=== PATIENT | male | born 1965 | race Caucasian/White ===

== ENCOUNTER 2016-11-14 19:38 | Inpatient (IN) | payer OTHER ==
--- NOTE | ~2016-11-14 | CT71 ---
[facility] A Service of [facility] & [facility] RADIOLOGY TEXT RESULTS PATIENT: SALIMA RIOS II LOCATION: CEDOF 94079-51 : 64 UNIT #: [id number] AGE: [address]: Ines García MD SEX: M ORDER DR: [id number] [facility] [address]. [place], [place] [address] [id number] I MR#: [id number] Acc #: [id number] NAME: SALIMA RIOS : 1965 SEX: M STUDY DATE/TIME: 11/14/2016 20:21 UNIT: CEDOF ROOM: [id number] STUDY DESCRIPTION: CT Head Wo Contrast Attending Physician: Ines García M.D. Ordering Physician: Ed Doctor [id number] [facility] Primary Care Physician: [facility] [place] MEDICAL IMAGING REPORT This report is preliminary unless electronic signature is present EXAM Head CT without. HISTORY Near syncopal episode today, hypertension, nausea, vomiting, exhaustion, history of stroke in 2011 x4. COMMENT Routine noncontrast head CT is reviewed. COMPARISON There is previous study from 10/22/2011. TECHNIQUE This CT exam was performed with one or more of the following radiation dose reduction techniques: automatic exposure control, adjustment of mA and/or kV according to patient size, and iterative reconstruction. FINDINGS No displaced calvarial fracture. Visualized mastoid air cells and paranasal sinuses are clear. Prominent atherosclerotic vascular calcifications at the base of the brain. There is no evidence for extraaxial fluid collection. No acute intracranial hemorrhage is appreciated. Somewhat disproportionate volume loss in the posterior fossa is most commonly seen secondary to long-term alcohol or antiseizure medication usage. There is chronic-appearing lacunar insult in the right superior cerebellar hemisphere and in the left wayne-kerrie. These are new/more apparent when comparison is made to the prior study. There is no acute cortical infarct currently appreciated. There is no intracranial mass effect. Subtle area of nonspecific low attenuation at the posteromedial left parietal lobe could be some beam-hardening artifact. Can't exclude an area of subacute ischemia or chronic ischemia. This is [facility] A Service of [facility] & [facility] RADIOLOGY TEXT RESULTS PATIENT: SALIMA RIOS II [facility] [address] : 64 UNIT #: [id number] AGE: [address]: Ines García MD SEX: M ORDER DR: best pursued with a followup MRI if the patient is candidate. IMPRESSION 1. No acute intracranial hemorrhage or extraaxial fluid collection. 2. Chronic lacunar insults in the kerrie and right cerebellar hemisphere progressed or more apparent when comparison is made of 10/22/2011. 3. No definite acute cortical infarct. There is some subtle low attenuation seen at the medial left parietal cortex posteriorly which could be some beam-hardening artifact. It is, however, best further characterized with an MRI if the patient is candidate. If there is clinical concern for acute CVA, follow-up imaging is recommended preferably with an MRI. 4. Atherosclerotic vascular calcifications at the base of the brain. STAT * RESULT Dictated by... Radha Howard M.D. THIS IS AN ELECTRONICALLY VERIFIED REPORT Radha Howard M.D. at 11/15/2016 1:42 PM Meet TD: 11/14/2016 20:42 JOB #: [id number] MEDICAL IMAGING REPORT Page 1 of 1 COPY
--- NOTE | ~2016-11-14 | CO ---
Unit #: [id number] #: [id number] Patient: SALIMA RIOS II [id number] [address] [place], [place] [address] [id number] I MR#: [id number] NAME: SALIMA RIOS ROOM: 340 Age: 51 Sex: M Admission Date: 11/15/2016 : 1965 Attending Physician: Ines García M.D. Primary Care Physician: [facility]. CONSULTATION REPORT CHIEF COMPLAINT Dizziness. HISTORY OF PRESENT ILLNESS Mr. Rios is a 51-year-old gentleman with history of multiple strokes in the past, hypertension, hyperlipidemia, obesity, chronic renal insufficiency, congestive heart failure, who was admitted for acute onset of dizziness. The symptoms started yesterday. Today, he reports he is not as dizzy as before, but still gets dizzy when he moves. Yesterday, he had vomited as well, but today denies any nausea. REVIEW OF SYSTEMS GENERAL: Positive for overall decline. SKIN: Negative. HEENT: Negative. PULMONARY: Negative. CARDIOVASCULAR: Positive for dyspnea. GI: Negative. : Negative. MUSCULOSKELETAL: Negative. NEUROLOGIC: Positive for dizziness. PSYCHIATRIC: Negative. PAST MEDICAL HISTORY As above. SOCIAL HISTORY Positive for 1 pack per day of tobacco daily. Denies alcohol or illicit drugs. FAMILY HISTORY Positive for brother having strokes. PHYSICAL EXAMINATION GENERAL: He is of obese appearance. HEART: Sounds are regular. NECK: There are no carotid bruits. LUNGS: Simms are clear. EXTREMITIES: There is mild peripheral edema. VITAL SIGNS: Blood pressure 154/94, pulse 54, respirations 16, temperature 98.2. NEUROLOGIC: He is alert, oriented x3 with intact language, fluency, and comprehension. Fund of knowledge is average. Memory and attention span are normal. Visual simms are full. There is no papilledema. Unit #: [id number] #: [id number] Patient: SALIMA RIOS II Extraocular muscles are intact. Pupils are equal, round, and reactive to light. Facial sensation and movements are symmetric. Hearing to conversation speech is normal. Palate elevates symmetrically. Trapezius full strength bilaterally. Tongue protrudes midline. There is no dysarthria or dysphagia. He has full strength in his extremities. Muscle tone and bulk are normal. There are no involuntary movements. There are no sensory deficits. Lypuxr-kb-eafy coordination is intact. DIAGNOSTIC STUDIES IMAGING STUDIES: I personally reviewed his MRI of the brain and it does show 3 embolic ischemic strokes to the cerebellum. ASSESSMENT AND PLAN In summary, Mr. Rios has had embolic ischemic strokes to his cerebellum, which account for his dizziness. I will increase his aspirin from 81 mg daily to 325 mg daily and increase his Lipitor to 80 mg daily. We will also check MRA of the brain and carotids as well as a 2D echocardiogram. I will ask PT/OT and Speech to evaluate for rehab needs. The patient was strongly advised to refrain from tobacco use since it doubles the risk of stroke recurrence. Further recommendations will be as per test results. Dictated by... Shweta Vidal/isabel TD: 11/15/2016 23:22 JOB #: [id number] CONSULTATION REPORT Page 1 of 1 X Na Rogers MD X CONSULTATION REPORT
--- NOTE | ~2016-11-14 | MR18 ---
[facility] A Service of [facility] & [facility] RADIOLOGY TEXT RESULTS PATIENT: SALIMA RIOS II LOCATION: C3A 340-01 : 63 UNIT #: [id number] AGE: [address]: Samira Puga MD SEX: M ORDER DR: [id number] [facility] [address] [place], [place] [address] [id number] I MR#: [id number] Acc #: [id number] NAME: SALIMA RIOS, ADITHYA : 1965 SEX: M STUDY DATE/TIME: 11/15/2016 8:04 UNIT: CEDOF ROOM: [id number] STUDY DESCRIPTION: MR Brain Wo Contrast Attending Physician: Ines García M.D. Ordering Physician: Ines García M.D. Primary Care Physician: [facility] REPORT This report is preliminary unless electronic signature is present. EXAM Brain MRI HISTORY Near syncope with dizziness on 11/14/2016. Dizziness is worse upon sitting up or standing. TECHNIQUE Multiplanar imaging of the brain was performed and compared to a previous examination from 10/23/2011. FINDINGS On diffusion weighted images, there is abnormal restricted diffusion in the left and right side of the cerebellum. There is an acute infarct in the right cerebellar tonsil measuring 1 cm in diameter and there are 2 acute infarcts in the inferior aspect of the left cerebellar hemisphere. 1 measures about 1 x 2.5 cm and the other measures 1.5 cm in diameter. No hemorrhages are seen on gradient echo imaging. Chronic ischemic changes are seen in the periventricular deep white matter bilaterally to a mild degree and there is chronic encephalomalacia in the left occipital lobe from an old infarct. Multiple chronic infarcts are seen in the right cerebellar hemisphere and in the lower kerrie to upper medulla bilaterally. The pontomedullary infarcts are new since the previous scan in 2011. The left occipital infarct is new since 2011 but both of these appear to be chronic on diffusion weighted imaging. No masses are seen. Extraaxial structures are unremarkable. IMPRESSION There are multiple acute infarcts in the cerebellum, 1 in the right cerebellar tonsil and 2 in the left inferior cerebellar hemisphere. Chronic ischemic changes are noted in multiple circulations as described above but again most prominent in the posterior circulation involving left STS. [facility] A Service of [facility] RADIOLOGY TEXT RESULTS PATIENT: SALIMA RIOS II LOCATION: C3A 340-01 : [birth year] UNIT #: [id number] AGE: [address]: Samira Puga MD SEX: M ORDER DR: occipital lobe, lower kerrie and cerebellum. No masses are seen and no hemorrhages are noted. STAT * RESULT Dictated by... Robb Trevino M.D. THIS IS AN ELECTRONICALLY VERIFIED REPORT Robb Trevino M.D. at 11/17/2016 3:09 PM JUAN A/nelson TD: 11/15/2016 11:53 JOB #: [id number] MRI CENTER REPORT Page 1 of 1 COPY
--- NOTE | ~2016-11-14 | MR122 ---
[facility] A Service of [facility] & [facility] RADIOLOGY TEXT RESULTS PATIENT: SALIMA RIOS II LOCATION: A 340-01 : 63 UNIT #: [id number] AGE: [address]: Ines García MD SEX: M ORDER DR: [id number] [facility] [address] [place], [place] [address] [id number] I MR#: [id number] Acc #: [id number] NAME: SALIMA RIOS, II : 1965 SEX: M STUDY DATE/TIME: 11/15/2016 14:15 [facility] RO[facility]: 340 STUDY DESCRIPTION: MR MRA Head Wo Contrast Attending Physician: Ines García M.D. Ordering Physician: Na Rogers M.D. Primary Care Physician: [facility]. MRI CENTER REPORT This report is preliminary unless electronic signature is present. EXAM MR angiogram [place] vasculature HISTORY Abnormal brain MRI with evidence of recent ischemia further evaluation. Near syncope 11/14/2016. Nausea, dizziness on sitting up or standing. Abnormal MRI this morning. COMMENT MR angiography performed [place] vasculature. MRI brain from earlier today for comparison. MRA neck separately dictated. There is an irregular appearance to the intracranial vessels consistent with intracranial atherosclerotic disease or less likely vasculitis. Correlate clinically. This includes irregular narrowing along the course of the basilar especially proximally where stenosis is likely hemodynamically significant. I believe the right vertebral artery is the major supplier to the basilar with left likely hypoplastic though not much of it is included in the [id number]-sb-wcax. The posterior cerebral arteries are irregular bilaterally with stenosis likely origin of the right [employer]. No distal cutoff is appreciated. There is irregular narrowing along the course of both internal carotid arteries. On the right side, there is also ectasia of the distal petrous internal carotid artery. Irregular signal loss in the more distal right MCA territory likely due to intracranial atherosclerotic disease. Also irregular signal loss in the more distal JULIÁN branches likely due to atherosclerotic disease. No central cutoff appreciated. There is no anterior communicating artery seen. There is a right posterior communicator present. No definite saccular aneurysm. There is ectasia of the right greater than left carotid siphon. IMPRESSION Findings are most consistent with extensive intracranial atherosclerotic STS. [facility] A Service of [facility] & [facility] RADIOLOGY TEXT RESULTS PATIENT: SALIMA RIOS II LOCATION: A 340-01 : [birth year] UNIT #: [id number] AGE: [address]: Ines García MD SEX: M ORDER DR: disease. No intracranial vascular cutoff is appreciated. See description above. Dictated by... Radha Howard M.D. THIS IS AN ELECTRONICALLY VERIFIED REPORT Radha Howard M.D. at 11/16/2016 7:37 AM GERRY/nelson TD: 11/16/2016 06:16 JOB #: [id number] MRI CENTER REPORT Page 1 of 1 COPY
--- NOTE | ~2016-11-14 | DS ---
Unit #: [id number] #: [id number] Patient: SALIMA RIOS II 185039 [address] [address] [id number] I MR#: [id number] NAME: SALIMA RIOS, II ROOM: [facility] Age: 51 Sex: M Admission Date: 11/15/2016 : 1965 Discharge Date: 11/17/2016 Attending Physician: Samira Puga M.D. Primary Care Physician: [facility]. DISCHARGE SUMMARY PRINCIPAL DIAGNOSES 1. Bilateral cerebellar cerebrovascular accident, embolic. 2. Large grade 4 aortic atheroma with calcified and fresh atheroma. 3. Medication-induced bradycardia. 4. Polycythemia, mild, likely secondary to underlying obstructive sleep apnea. 5. Mild bilateral carotid stenosis, less than 50%. 6. Chronic kidney disease, stage 3, with baseline creatinine of 1.3. Discharge creatinine 1.2. 7. Chronic obstructive pulmonary disease. 8. Tobaccoism. 9. Hyperlipidemia. 10. Gastroesophageal reflux disease. 11. Hypertension. 12. Coronary artery disease. 13. Obesity. CONSULTANTS 1. Dr. Quesada, cardiology. 2. Dr. Rogers, neurology. 3. Dr. Hutchins, vascular surgery. PROCEDURES BERNARDO on November 17, 2016 without evidence of clot in the left atrial appendage. No vegetation. No PFO or atrial septal defect. Severe diffuse atherosclerotic plaque in the aorta with grade 4 calcified and fresh atheroma. DIAGNOSTIC STUDIES CARDIOVASCULAR: Two-dimensional echocardiogram on November 15, 2016 with ejection fraction of 60%. Mild tricuspid regurgitation noted. Right ventricular systolic pressure 25 mmHg. Trace pulmonic regurgitation noted. IMAGING: CT of the head without contrast on November 14, 2016 with no acute intracranial hemorrhage. Chronic lacunar infarcts in the kerrie and right cerebellar hemisphere. No acute cortical infarct. Low attenuation in the medial left parietal cortex. Atherosclerotic vascular calcifications at the base of the brain noted. Chest x-ray on November 14, 2016 with mild cardiac silhouette enlargement; low lung volumes noted; increased airspace disease at lung bases, left greater than right. MRI of the brain without contrast on November 15, 2016 with multiple acute Unit #: [id number] #: [id number] Patient: HISER,SALIMA G. II infarcts in the cerebellum; there is one present in the right cerebellar tonsil measuring 1 cm in diameter. Two acute infarcts in the inferior aspect of the left cerebellar hemisphere, one of these measures 1 cm x 2.5 cm, and the other measures 1.5 cm in diameter. Chronic ischemic changes are noted in multiple circulations, most prominent in the posterior circulation. No masses or hemorrhages noted. Bilateral carotid Doppler on November 15, 2016 with less than 50% stenosis involving both internal carotid arteries. MRA of head and neck on November 15, 2016 with extensive intracranial atherosclerotic disease. Left vertebral artery was occluded at its origin with irregular reconstitution in the neck. Right vertebral artery is patent. NASCET criteria approximately 60% diameter in the right and 55% on the left. CLINICAL HISTORY AND HOSPITAL COURSE Mr. Rios is a 51-year-old male who presented to the emergency department with the acute onset of vertigo with associated nausea and vomiting. Please refer to H and P for further details. Patient does have a prior history of stroke. CT scan of the head was initially unremarkable, but he was placed in the hospital to rule out stroke. Dr. Rogers was consulted. Patient underwent MRI of the brain revealing bilateral cerebellar strokes. Given the bilateral nature, BERNARDO was ultimately done, revealing a large grade 4 atheroma, which is likely the source of patient's stroke. We are going to treat empirically with anticoagulation, which I have discussed extensively with the patient and his family, and he is agreeable. He has been counselled extensively regarding tobacco cessation. I will note that his symptoms have significantly improved and almost resolved on day of discharge. Cardiology was consulted given patient developed some bradycardia. Beta-yulia dose was decreased. However, given his large atheroma, he is at high risk for underlying coronary artery disease and will be worked up as an outpatient and will likely require a heart cath. Patient also had some mild polycythemia, which remained stable throughout the hospitalization. Hemoglobin ranged anywhere from 16 to 16.5. He needs outpatient polysomnography to evaluate for obstructive sleep apnea, which I anticipate is the likely source of his polycythemia. Patient's blood pressure otherwise remained stable. He will be discharged home later today on medications as noted. DISCHARGE CONDITION Stable. DISCHARGE STATUS Discharge to home with home health for INR monitoring and blood pressure monitoring. DISCHARGE MEDICATIONS 1. Coumadin 5 mg p.o. daily. Goal INR 2 to 3. 2. Atorvastatin 80 mg at bedtime. 3. Metoprolol tartrate 12.5 mg, half tablet p.o. b.i.d. 4. Zestoretic 20/25 mg 1 tablet daily. 5. Hydralazine 50 mg b.i.d. Unit #: [id number] #: [id number] Patient: SALIMA RIOS II 6. Aspirin 81 mg daily. 7. Isosorbide dinitrate 20 mg p.o. t.i.d. DISCHARGE INSTRUCTIONS Patient was instructed to follow a heart healthy diet. He can increase his activity as tolerated, to refrain from any further tobacco use. FOLLOW-UP 1. Patient will have a followup appointment made with Dr. Kerr or Dr. Quesada prior to discharge for outpatient workup for underlying coronary artery disease. 2. Patient should follow up with Dr. Pablo Wyatt of outpatient neurology in approximately 4 weeks. 3. He will follow up with his primary care provider, Dr. Knott, at [facility] in approximately 4 weeks. Needs INR done on November 20, 2016, again, with goal INR of 2-3. NOTE: Time spent on discharge - 53 minutes. Dictated by... Samira Puga M.D. SYDNEY/zeke TD: 11/17/2016 14:48 JOB #: [id number] DISCHARGE SUMMARY Page 1 of 1 X Samira Puga MD X DISCHARGE SUMMARY
--- NOTE | ~2016-11-14 | CO ---
Unit #: [id number] #: [id number] Patient: SEAMUS RIOS II [id number] [address] [place], [place] [address] [id number] MR#: [id number] NAME: SEAMUS RIOS ROOM: 340 Age: 51 Sex: M Admission Date: 11/15/2016 : 1965 Attending Physician: Ines García M.D. Primary Care Physician: Count Includes [facility], [facility]. Consultation Date: 11/15/2016 CONSULTATION REPORT REASON FOR CONSULTATION Abnormal EKG. HISTORY OF PRESENT ILLNESS This is a 51-year-old white male, who has a history of hypertension, hyperlipidemia, COPD, nicotine abuse, previous stroke back in 2011, chronic kidney disease. He came to the hospital with onset of dizziness and unsteady gait. According to the patient, he was in the garage working and he raised up and became very dizzy. He lost his balance, he had to sit down. Every time he tried to get up, he had this severe dizziness. His family called EMS. He was brought in, continued with the same symptoms. He denies any chest pain; pain in his neck, bilateral jaws, shoulders, arms, or elbow. He denies any palpitations. He did become nauseated and vomited x1, but that has resolved. He denies any numbness or tingling in his upper extremities. He moves all extremities well. He denies any slurred speech or difficulty swallowing. He denies any visual disturbances or headache. In the emergency room, the patient's blood pressure was 141/84, heart rate was 56, respirations 16, temperature 97.8, O2 saturation was 92% on room air. The patient's EKG showed marked sinus bradycardia, heart rate 47 beats per minute, T-wave inversion in the anterolateral leads with some early repolarization in lead III and some ST-T wave abnormalities in the inferior leads, poor R-wave progression, Q-waves in the inferior leads and also in V1. Initial cardiac enzymes were negative. BNP 73. Potassium on admission was 3.4 and it has been supplemented, now it is 4.3; creatinine 1.3. WBCs are normal. The patient had a CT of the head, it shows his old stroke, nothing acute. Chest x-ray showed a right atelectasis versus an infiltrate, and the patient had a CT head, as mentioned nothing acute, no definite infarct. He had an MRI of the brain and the preliminary report that showed new stroke. Cardiology has been consulted to assist with evaluation and management. PAST MEDICAL HISTORY 1. Hypertension. 2. Hyperlipidemia. 3. COPD, probable obstructive sleep apnea. 4. Previous stroke back in 2011. 5. Nicotine abuse. 6. Chronic kidney disease. 7. In 10/2011, transesophageal echocardiogram at the time of his stroke showed LVEF of 60% with moderate left ventricular hypertrophy; no Unit #: [id number] #: [id number] Patient: SEAMUS RIOS II significant valvular disease; no clot, thrombus, or vegetation, but mild atherosclerosis of the aorta. 8. Obesity. 270 pounds, BMI is 37. 9. The patient reports he had a stress test around 2011, told it was normal, but details are unavailable. PAST SURGICAL HISTORY Tonsillectomy. HOME MEDICATIONS Hydralazine 25 mg p.o. t.i.d., isosorbide 20 mg p.o. t.i.d., metoprolol 25 mg p.o. b.i.d., Zestoretic 20/25 one p.o. daily, Plavix 75 mg daily, Lipitor 40 mg p.o. daily, aspirin 81 mg daily. ALLERGIES No known drug allergies. SOCIAL HISTORY The patient lives with his family. He continues to smoke about half a pack a day. He has been smoking most of his adult life. He used a lot of marijuana, but has not in the last couple of years. No alcohol abuse. FAMILY HISTORY His mother has hypertension and his father of pancreatic cancer. He has a younger brother, who had , with multiple medical problems, he may have had some kind of heart condition. REVIEW OF SYSTEMS See details in HPI. PHYSICAL EXAMINATION GENERAL: On exam, Seamus Castellano is a 51-year-old white male, in no acute respiratory distress. He is awake, alert. Answers questions appropriately. VITAL SIGNS: Blood pressure is 148/89, heart rate 58, respirations 16, temperature 98.2, O2 saturations 97% on room air. NECK: Trachea midline. No thyromegaly or lymphadenopathy. Normal carotid upstrokes. No jugular venous distention. HEART: S1 and S2. Regular rate and rhythm. No clicks, murmurs, or rubs. LUNGS: Very diminished, especially in the right base. ABDOMEN: Obese, soft, nontender. EXTREMITIES: Pedal pulses are palpable. No pedal edema. DIAGNOSTIC STUDIES LABORATORY RESULTS: Glucose is 139, BUN 16, creatinine 1.3, eGFR is 62.8, sodium 137, potassium 4.3, chloride 99, CO2 of 28, calcium is 8.8, total protein 7.1, albumin 4.2, bilirubin total 0.7, AST 22, ALT 26, alkaline phosphatase is 70. BNP 73. TSH is 0.75. WBCs on admission was 12.2, hemoglobin 16.1, hematocrit 48.5, and platelets were 138. Initial cardiac enzymes; CK-MB is 1.6, troponin less than 0.05, CK-MB is 2.2, troponin less than 0.05. INR is 1.1. Latest cardiac enzymes; CK is 148, troponin less than 0.03. INR is 1.1. IMAGING STUDIES: Chest x-ray; preliminary report shows atelectasis versus infiltrate in the right base. CT of the head without contrast shows no acute intracranial hemorrhage or fluid collection. Chronic lacunar insults in the kerrie and the right Unit #: [id number] #: [id number] Patient: SEAMUS RIOS. II cerebellar hemisphere, no definite acute cortical infarct. MRI; preliminary report is showing a new stroke, details unavailable. CARDIOVASCULAR STUDIES: EKG shows sinus bradycardia, heart rate 52 beats per minute, T-waves in the inferior leads, some early repolarization in the inferior leads, T-wave inversion in the anterolateral leads, poor R-wave progression. IMPRESSION 1. Acute onset of dizziness, unsteady gait, new stroke. Details unavailable. 2. History of previous stroke back in 2011. 3. Hypertension. 4. Abnormal EKG. 5. Chronic obstructive pulmonary disease, probable obstructive sleep apnea. 6. Chronic kidney disease. 7. Left ventricular ejection fraction of 60% on BERNARDO in 2011. 8. Nicotine abuse. PLAN 1. As reported, the MRI has been done and the preliminary report is showing a new stroke. Dr. Lee with Neurology has been consulted. The patient is already on aspirin and Plavix that will be continued and increase the aspirin to 325 mg daily. 2. MRA of the head and the carotids have been ordered. Obtain a 2D echo to evaluate LV function and valves. On exam, there are no signs or symptoms of acute congestive heart failure or unstable angina. Continue to monitor. Cardiac enzymes are negative so far. The patient's potassium on admission was 3.4 and they supplemented, now it is 4.3. On his EKG, there was some ST-T wave inversion in the anterolateral leads, which is new compared to previous EKG. The patient did have a stress test ordered for today, but that has been canceled due to the fact that he has had some new cerebellum strokes. 3. We will evaluate the patient to see if he needs a stress test versus a catheterization to evaluate for ischemic heart disease after his neurological status to be stable. 4. Obtain a fasting lipid profile. TSH is normal. 5. Encourage the patient to completely quit smoking. Smoking cessation information provided to the patient. 6. The patient will be continued on his hydralazine, isosorbide, metoprolol, and Zestoretic. We will monitor labs closely. 7. Further recommendations pending per Dr. Quesada. Thank you very much for allowing us to assist in this care. Dictated by... Komal Solorio A.P.R.N. for Shweta Sahu/isabel TD: 11/15/2016 17:23 JOB #: [id number] Unit #: [id number] #: [id number] Patient: SEAMUS RIOS II CONSULTATION REPORT Page 1 of 1 X Komal Solorio APRN X CONSULTATION REPORT
--- NOTE | ~2016-11-14 | EKG ---
PATIENT: SALIMA RIOS UNIT #: [id number] Ventricular Rate: 52 BPM Atrial Rate: 52 BPM P-R Interval: 166 ms QRS Duration: 86 ms Q-T Interval: 470 ms QTC Calculation(Bezet): 437 ms P [place]: 37 degrees Calculated R [place]: 13 degrees Calculated T [place]: 138 degrees Diagnosis Line: Sinus bradycardia Diagnosis Line: ST and T wave abnormality, consider anterolateral Diagnosis Line: ischemia Diagnosis Line: Abnormal ECG Diagnosis Line: When compared with ECG of 22-OCT-2011 07:41, Diagnosis Line: Questionable change in QRS axis Diagnosis Line: Nonspecific T wave abnormality no longer evident Diagnosis Line: in Inferior leads Diagnosis Line: T wave inversion more evident in Lateral leads Diagnosis Line: Confirmed by ROSALBA KIM MD ([id number]) on 11/16/2016 Diagnosis Line: 5:41:03 AM INTERPRETING MD: JUDY JOHANSEN
--- NOTE | ~2016-11-14 | HP ---
Unit #: [id number] #: [id number] Patient: SALIMA RIOS II [id number] [address] [address] [id number] I MR#: [id number] NAME: SALIMA RIOS ROOM: 52383 Age: 51 Sex: M Admission Date: 11/14/2016 : 1965 Attending Physician: Ines García M.D. Primary Care Physician: [facility]. HISTORY AND PHYSICAL CHIEF COMPLAINT Dizziness, nausea, vomiting. DISCUSSION This is a 51-year-old gentleman with a history of CVA in the past with short term memory loss without residual deficit, hypertension, dyslipidemia, chronic kidney disease, history of congestive heart failure, obesity. He presented to ER for evaluation of dizziness. He said he was working on the table, putting some screen. When he went to sit on the chair he felt dizzy and he vomited x2, felt very weak but denied chest pain, denied fever, chills, cough or other complaint. PAST MEDICAL HISTORY 1. History of CVA with short-term memory loss without residual deficit. 2. Hypertension. 3. Dyslipidemia. 4. Chronic kidney disease stage 3. 5. History of CHF. 6. Obesity. PAST SURGICAL HISTORY History of tonsillectomy. SOCIAL HISTORY Used to smoke one pack daily for 30 years. Still continues to smoke a half pack daily. Denies alcohol, denies illicit drug use. ALLERGIES No known drug allergies. MEDICATIONS Medications from home as followin. Lipitor 40 mg daily. 2. Aspirin 81 mg daily. 3. Hydralazine 25 mg three times daily. 4. Isosorbide 20 mg daily. 5. Metoprolol 25 mg twice a day. 6. Zestoretic 20/25, one tablet daily. 7. Plavix 75 mg daily. FAMILY HISTORY Brother had acute AK and CVA. REVIEW OF SYSTEMS Unit #: [id number] #: [id number] Patient: SALIMA RIOS II CONSTITUTIONAL: No fever, no chills. GI: Positive for nausea, vomiting x2. No diarrhea, no blood in the stool. : No dysuria, no frequency, no urgency. PULMONARY: No cough, no wheezing. TRAPEZE PERFORMER: No loss of consciousness. No weakness. CARDIOVASCULAR: No chest pain, no diaphoresis, no palpitations, no orthopnea, no dyspnea. HEENT: No nasal congestion, no headache, no sore throat. PSYCHIATRIC: Normal mood/affect. No mood changes. PHYSICAL EXAMINATION GENERAL: Middle aged man lying in the bed comfortably, currently not in any distress. He is alert, awake, oriented x3. CURRENT VITAL SIGNS: Temp is 97.8, heart rate 56, respiratory rate 16, blood pressure 141/84. Oxygen 92% on room air. HEENT: Pupils equal, reactive to light and accommodation. Head is normocephalic, atraumatic. NECK: Supple. No JVD, no thyromegaly. LUNGS: Clear to auscultation. No rhonchi, no wheezing. HEART: S1, S2. Regular rate and rhythm. ABDOMEN: Soft, nontender, nondistended, obese. EXTREMITIES: Inspection normal. No cyanosis, no clubbing, no edema. NEURO: No focal neurologic deficit. Power 5/5. Cranial nerves II-XII intact. PSYCH: Normal mood/affect. SKIN: No rash. Warm, dry. DIAGNOSTIC STUDIES LABORATORY: BNP 73. Chemistry - sodium 138, potassium 3.4, chloride 103, CO2 24, glucose 151, BUN 16, creatinine 1.3. LFTs within normal limits. INR is 1.1. Glucose 133. Troponin less than 0.05. CBC - 12.2, hemoglobin 16, hematocrit 48, platelet 153. IMAGING: Chest x-ray shows atelectasis. CT head - no acute changes. Shows chronic lacunar infarct. ASSESSMENT AND PLAN 1. Dizziness: Will admit the patient, monitor overnight on monitor and will get also MRI of head. He is telling me that symptoms were similar like he had a stroke before. In view of that, I will go ahead and proceed with MRI of head and get carotid Doppler. 2. Electrocardiogram changes: T wave inversion in septal leads. Will schedule nuclear stress in the morning. Ask cardiology to evaluate. 3. Mild hypokalemia, replace. 4. History of cerebrovascular accident in the past. 5. Hypertension. 6. Dyslipidemia. 7. Chronic kidney disease, stage 3. 8. History of congestive heart failure in the past. 9. Obesity. Unit #: [id number] #: [id number] Patient: SALIMA RIOS II 10. DVT prophylaxis: Will place the patient on Lovenox. Dictated by Shweta Cantrell/pearl TD: 11/15/2016 10:27 JOB #: [id number] HISTORY AND PHYSICAL Page 1 of 1 X X HISTORY AND PHYSICAL
--- NOTE | ~2016-11-14 | CR72 ---
[facility] A Service of [facility] & [facility] RADIOLOGY TEXT RESULTS PATIENT: SALIMA RIOS II LOCATION: [facility] [address]-81 : [birth year] UNIT #: [id number] AGE: [address]: Ines García MD SEX: M ORDER DR: [id number] [facility] [address] [facility]. [place], [place] [address] [id number] I MR#: [id number] Acc #: [id number] NAME: SALIMA RIOS : 1965 SEX: M STUDY DATE/TIME: 11/14/2016 20:33 UNIT: [facility] ROOM: 45066 STUDY DESCRIPTION: CR Chest Single View Portable Attending Physician: Ines García M.D. Ordering Physician: Viet Almonte M.D. Primary Care Physician: [facility]. MEDICAL IMAGING REPORT This report is preliminary unless electronic signature is present EXAM Chest x-ray 1 view portable HISTORY Nausea, vomiting, CHF and dizziness. Symptoms for 2 days. Smoker for 10 years+. COMMENT Single frontal portable view of the chest timed 20:33 11/14/2016 compared to 10/21/2011. Mild cardiac silhouette enlargement. Lung volumes are low. There is mild airspace disease left greater than right lung base. This could be atelectasis given the low lung volumes but please correlate for any clinical concern for aspiration or early pneumonia. Follow up is recommended. No pneumothorax. No congestive failure. No obvious pleural effusion. IMPRESSION 1. Redemonstration of mild cardiac silhouette enlargement. 2. Lung volumes are low and there is increased airspace disease at lung bases, left greater than right. This could be atelectasis given the low lung volumes but clinical correlation and follow up to ensure complete resolution is recommended to exclude underlying aspiration or pneumonia, particularly given history and asymmetric involvement at the left base. Dictated by... Radha Howard M.D. THIS IS AN ELECTRONICALLY VERIFIED REPORT Radha Howard M.D. at 11/15/2016 1:45 PM STS. [facility] A Service of [facility] & [facility] RADIOLOGY TEXT RESULTS PATIENT: SALIMA RIOS II LOCATION: [facility] [address]-84 : [birth year] UNIT #: [id number] AGE: [address]: Ines García MD SEX: M ORDER DR: Judy TD: 11/15/2016 10:48 JOB #: [id number] MEDICAL IMAGING REPORT Page 1 of 1 COPY
--- NOTE | ~2016-11-14 | US37 ---
[facility] A Service [facility] RADIOLOGY TEXT RESULTS PATIENT: SALIMA RIOS II LOCATION: [facility] 340-01 : [birth year] UNIT #: [id number] AGE: [address]: Ines García MD SEX: M ORDER DR: [id number] [place] [id number] [facility]. [place], [place] [address] [id number] I MR#: [id number] #: [id number] NAME: SALIMA RIOS II : 1965 SEX: M STUDY DATE/TIME: 11/15/2016 10:37 UNIT: [address] ROOM: [facility] STUDY DESCRIPTION: US Carotid W/Doppler Bilateral Attending Physician: Ines García M.D. Ordering Physician: Jayro Berkowitz M.D. Primary Care Physician: [facility] MEDICAL IMAGING REPORT This report is preliminary unless electronic signature is present EXAM Duplex carotid ultrasound INDICATION Cerebrovascular accident, hypertension and hyperlipidemia. TECHNIQUE [place]-scale, color Doppler, and spectral Doppler waveform imaging of the carotid and vertebral arteries was performed. The study is compared with 10/26/2011. FINDINGS The peak systolic velocity of the right common carotid artery is 72 cm/sec. The peak systolic velocities of the right internal carotid artery range from 81-102 cm/sec. The peak systolic velocity of the right external carotid artery is 117 cm/sec. Antegrade flow within the right vertebral artery. Plaque is noted within the carotid bulb on the right. Peak systolic velocity of the left common carotid artery is 90 cm/sec. Peak systolic velocity of the left internal carotid artery ranges from 79-118 cm/sec. Peak systolic velocity of the left external carotid artery is 132 cm/sec. Antegrade flow within the left vertebral artery. Plaque is noted within the left carotid bulb. IMPRESSION Based on the NASCET criteria there is mild (less than 50%) stenoses involving both internal carotid arteries. Dictated by... Chase Burgess M.D. [facility] A Service [facility] RADIOLOGY TEXT RESULTS PATIENT: SALIMA RIOS II LOCATION: [facility] 340-01 : [birth year] UNIT #: [id number] AGE: [address]: Ines García MD SEX: M ORDER DR: THIS IS AN ELECTRONICALLY VERIFIED REPORT Chase Burgess M.D. at 11/16/2016 2:20 PM GELA/bertha TD: 11/16/2016 00:15 JOB #: [id number] MEDICAL IMAGING REPORT Page 1 of 1 COPY
--- NOTE | ~2016-11-14 | EKG ---
PATIENT: SALIMA RIOS UNIT #: [id number] Ventricular Rate: 47 BPM Atrial Rate: 47 BPM P-R Interval: 152 ms QRS Duration: 96 ms Q-T Interval: 486 ms QTC Calculation(Bezet): 430 ms P [place]: 39 degrees Calculated R [place]: 32 degrees Calculated T [place]: 125 degrees Diagnosis Line: Marked sinus bradycardia Diagnosis Line: T wave abnormality, consider anterolateral Diagnosis Line: ischemia Diagnosis Line: Abnormal ECG Diagnosis Line: When compared with ECG of 14-NOV-2016 20:36, Diagnosis Line: (unconfirmed) Diagnosis Line: No significant change was found Diagnosis Line: Confirmed by ROSALBA KIM MD ([id number]) on 11/16/2016 Diagnosis Line: 5:44:53 AM INTERPRETING MD: JUDY JOHANSEN
--- NOTE | ~2016-11-14 | EKG ---
PATIENT: SALIMA RIOS UNIT #: [id number] Ventricular Rate: 67 BPM Atrial Rate: 67 BPM P-R Interval: 144 ms QRS Duration: 90 ms Q-T Interval: 386 ms QTC Calculation(Bezet): 407 ms P [place]: 56 degrees Calculated R [place]: 26 degrees Calculated T [place]: 121 degrees Diagnosis Line: Normal sinus rhythm Diagnosis Line: Nonspecific T wave abnormality Diagnosis Line: Abnormal ECG Diagnosis Line: When compared with ECG of 15-NOV-2016 06:52, Diagnosis Line: T wave inversion less evident in Lateral leads Diagnosis Line: Confirmed by STEPHANIE TRUONG MD ([id number]) on Diagnosis Line: 11/16/2016 11:01:10 PM INTERPRETING MD: ZOIE
--- NOTE | ~2016-11-14 | CO ---
Unit #: [id number] #: [id number] Patient: SALIMA RIOS II [id number] [address] [place], [place] [address] [id number] I MR#: [id number] NAME: SALIMA RIOS, II ROOM: [facility] Age: 51 Sex: M Admission Date: 11/15/2016 : 1965 Attending Physician: Samira Puga M.D. Primary Care Physician: [facility]. Consultation Date: 11/16/2016 CONSULTATION REPORT This is Jim Rivas APRN dictating for Dr. Bryanna Hutchins. REASON FOR CONSULTATION Carotid stenosis. HISTORY OF PRESENT ILLNESS This is a 51-year-old male, who presents to [facility] via EMS services. He reports that he was doing some yard work when he became profoundly dizzy. He sat down for a period of time and the symptoms did not resolve. He was so dizzy that he did not get up, so his girlfriend did assist him with ambulation back to the house, so EMS services was called. He reports getting to the hospital. He has had complete resolution of his symptoms. He reports having a stroke in the past approximately 4 years ago. He describes symptoms at that time as a profound headache in which he thought he was going to . Mr. Castellano continues to smoke half a pack of cigarettes daily. PAST MEDICAL HISTORY 1. Hypertension. 2. History of CVA. 3. High cholesterol. ALLERGIES No known drug allergies. MEDICATIONS Atorvastatin 40 mg daily, 81 mg aspirin daily, Plavix 75 mg daily, hydralazine 25 mg t.i.d., isosorbide mononitrate 20 mg daily, metoprolol 25 mg b.i.d., Zestoretic 20/25 one tablet daily. SOCIAL HISTORY The patient lives at home with girlfriend. He smokes 1/2 pack of cigarettes daily. He denies alcohol use. He denies drug use. FAMILY HISTORY Mother alive, history of hypertension. Father , history of hypertension. Brother alive, history of CVA. REVIEW OF SYSTEMS Complete review of systems was performed with everything negative unless noted in the history of present illness. PHYSICAL EXAMINATION Unit #: [id number] #: [id number] Patient: SALIMA RIOS II VITAL SIGNS: Temperature 98, heart rate 50, blood pressure 140/86, O2 saturation 98% on room air. GENERAL APPEARANCE: This is a well-developed, well-nourished male, in no acute distress. The patient answers all questions appropriately. Good mood and appropriate affect. HEENT: Normocephalic. Pupils are equal, round, and reactive to light. Poor dentition. NECK: Soft, bilateral carotid bruits. CARDIAC: Regular rate and rhythm, bradycardic. LUNGS: Clear to auscultation. ABDOMEN: Soft, nontender, and nondistended. Positive bowel sounds. No palpable pulsatile masses on exam. MUSCULOSKELETAL: Moves all extremities with full range of motion. EXTREMITIES: Upper extremities; palpable radial pulses bilaterally. Lower extremity vasculature, unable to palpate bilateral femoral pulses. Palpable posterior tibialis pulses bilaterally. Dorsalis pedis pulses bilaterally, nonpalpable. INTEGUMENTARY: Skin is warm and dry. Lower extremities skin is smooth and no hemosiderin deposits. No obvious sores, lesions, or nonhealing wounds. Skin of feet is dry and scaly. NEUROLOGIC: Cranial nerves 2 through 12 grossly intact. Normal strength, normal sensation bilaterally. DIAGNOSTIC STUDIES IMAGING STUDIES: On 11/15/2016, the patient underwent bilateral carotid duplex, which demonstrates per radiology read, less than 50% stenosis involving the bilateral internal carotid artery. On 11/15/2016, the patient also underwent MRA of the neck, which demonstrates per radiology read, the right internal carotid artery measures about 60% and the left internal carotid artery measures about 55% by NASECT criteria. The left vertebral artery hypoplastic vessel. The right vertebral artery is patent and dominant and is probably only mild . LABORATORY RESULTS: Sodium 140, potassium 4.7, chloride 102, CO2 of 30, BUN 16, creatinine 1.4, glucose 93. Hemoglobin 15.1, hematocrit 48.5, WBCs 8.2, platelets 135. ASSESSMENT AND PLAN 1. Carotid atherosclerosis. MRA suggestive of 60% right internal carotid artery stenosis and 50% left internal carotid artery stenosis. Ultrasound of the carotid demonstrate less than 50% bilaterally. Recommendations include followup carotid ultrasound in 6 months. 2. Left vertebral artery stenosis. The patient has new right cerebellar infarct. Discussed with Neurology. BERNARDO has been planned to rule out cardioembolic sources to further assess patient's . Thank you for allowing us to participate in the care of this patient. Dictated by... Jim Rivas APRN for Shweta Tinajero/isabel TD: 11/17/2016 07:22 JOB #: [id number] Unit #: [id number] #: [id number] Patient: SALIMA RIOS II CONSULTATION REPORT Page 1 of 1 X X CONSULTATION REPORT
--- NOTE | ~2016-11-14 | MR133 ---
[facility] A Service of [facility] & [facility] RADIOLOGY TEXT RESULTS PATIENT: SALIMA RIOS II LOCATION: C3A 340-01 : 63 UNIT #: [id number] AGE: [address]: Ines García MD SEX: M ORDER DR: [id number] [facility] [address] [place], [place] [address] [id number] MR#: [id number] Acc #: [id number] NAME: SALIMA RIOS, ADITHYA : 1965 SEX: M STUDY DATE/TIME: 11/15/2016 14:26 UNIT: CEDOF ROOM: 39719 STUDY DESCRIPTION: MR MRA Neck WWo Contrast Attending Physician: Ines García M.D. Ordering Physician: Na Rogers M.D. Primary Care Physician: [facility] MRI CENTER REPORT This report is preliminary unless electronic signature is present. EXAM MR angiogram of the neck with and without contrast HISTORY Abnormal brain MRI with evidence of recent stroke for further evaluation; near syncope episode 11/14/2016 with dizziness. COMMENT MR angiography performed neck vessels prior to and during the intravenous administration of 20 mL of MultiHance. COMPARISON CT angiogram of the head and neck, 10/27/2011 FINDINGS Mild narrowing at the origin of the left common carotid artery. The branch pattern is normal from the aortic arch. The right vertebral artery is dominant. There may be some mild narrowing at its origin, but it is patent. 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 Disease is new since the CT angiogram 10/27/2011. There is now demonstration of the left vertebral artery only in segments and the portions seen are of small caliber and somewhat irregular. I suspect it occludes at the origin and has areas of reconstitution in the neck. By NASCET criteria there is probably about 60% diameter stenosis at the right carotid bifurcation about 1-2 cm above the bifurcation and on the left side there is likely high-grade stenosis more proximally about 55% by NASCET criteria. The cervical internal carotid arteries are tortuous in the neck bilaterally. I believe the parotid disease is also progressed from the previous study but please be aware that MR angiography has a tendency to overestimate the degree of stenosis due to flow characteristics. IMPRESSION 1. In the interval since the CT angiogram from 2011, the appearance [facility] A Service of [facility] RADIOLOGY TEXT RESULTS PATIENT: SALIMA RIOS II LOCATION: C3A 340-01 : 63 UNIT #: [id number] AGE: [address]: Ines García MD SEX: M ORDER DR: of the left vertebral artery has significantly changed. Previously it was patent throughout and currently it appears to be diseased with occlusion at its origin and irregular reconstitution in the neck of a diseased/hypoplastic vessel. The right vertebral artery is patent and dominant and there is probably only mild narrowing at its origin. 2. There is likely progression of disease at the carotid bifurcations bilaterally with comparisons made to 2012. By NASCET criteria about 60% diameter stenosis on the right and 55% diameter stenosis on the left. Please be aware that MR angiography has a tendency to overestimate the degree of stenosis due to flow characteristics. The patient may benefit from followup carotid Doppler ultrasound if it would alter management. STAT * RESULT Dictated by... Radha Howard M.D. THIS IS AN ELECTRONICALLY VERIFIED REPORT Radha Howard M.D. at 11/15/2016 8:40 PM SAC/to TD: 11/15/2016 16:20 JOB #: [id number] MRI CENTER REPORT Page 1 of 1 COPY
--- NOTE | ~2016-11-14 | DS ---
Unit #: [id number] #: [id number] Patient: SALIMA RIOS II [id number] [address] [address] [id number] MR#: [id number] NAME: SALIMA RIOS II ROOM: [facility] Age: 51 Sex: M Admission Date: 11/15/2016 : 1965 Discharge Date: 11/17/2016 Attending Physician: Samira Puga M.D. Primary Care Physician: [facility]. DISCHARGE SUMMARY ADDENDUM ADDITIONAL DISCHARGE MEDICATION Lovenox 100 mg subcutaneous q.12 h., to stop when INR is greater than or equal to 2.0. Dictated by... Samira Puga M.D. KEH/gz TD: 11/18/2016 08:55 JOB #: [id number] DISCHARGE SUMMARY Page 1 of 1 X Samira Puga MD X DISCHARGE SUMMARY
[~2016-11-14 19:38] MED LIST: BAYER ASPIRIN325 M1 PO; CLONIDINE HCL0.1 MG PO; HYDRALAZINE HC100 MG PO; HYDROCHLOROTH12.5 MG PO; ISORDIL PO; LISINOPRIL PO; LOVASTATIN20 MG PO; METOPROLOL TAR25 MG PO; PLAVIX PO
[2016-11-14 20:22] LABS: BASOPHIL# 0.1 X10e3 (0-0.3); BASOPHIL% 0.9 % (0-2.5); EOSINOPHIL# 0.3 X10e3 (0-0.7); EOSINOPHIL% 2.1 % (0.0-7.0); HEMATOCRIT 48.8 % (38.0-50.0); HEMOGLOBIN 16.1 gm/dL (13.0-16.0); LYMPHOCYTE# 3.1 X10e3 (1.0-3.5); LYMPHOCYTE% 25.4 % (17.0-45.0); MEAN CELL VOLUME 86.2 FL (83-96); MEAN CORPUSCULAR HEMOGLOBIN 28.5 PG (28-34); MEAN CORPUSCULAR HGB CONC 33.1 g/dL (30-36); MEAN PLATELET VOLUME 9.1 FL (6.5-11.5); MONOCYTE% 8.5 % (3.0-12.0); NEUTROPHIL# 7.7 X10e3 (1.5-7.1); NEUTROPHIL% 63.1 % (40-75); PLATELET COUNT 153 X10e3 (140-420); RED BLOOD COUNT 5.66 X10e (3.90-5.60); RED CELL DISTRIBUTION WIDTH 14.3 % (11.0-15.5); WHITE BLOOD COUNT 12.2 X10e3 (4.0-10.5)
[2016-11-14 20:25] LABS: DIFF IND NO
[2016-11-14 20:29] LABS: POC - CKMB 1.6 ng/mL (0.0-7.9); POC - TROPONIN <0.05 ng/mL (<=0.05)
[2016-11-14 20:35] LABS: INR 1.1; PARTIAL THROMBOPLASTIN TIME 24.5 SECONDS (23.5-31.3); PROTHROMBIN TIME (PATIENT) 11.8 SECONDS (9.6-11.5)
[2016-11-14 20:45] LABS: ALBUMIN SERUM 4.2 g/dL (3.5-5.0); BILIRUBIN, DIRECT 0.1 mg/dL (0.0-0.2); BILIRUBIN,INDIRECT 0.6 mg/dL (0.0-0.9); BILIRUBIN,TOTAL 0.7 mg/dL (0.2-2.0); BUN/CREATININE RATIO 12.3; CALCIUM SERUM 8.8 mg/dL (8.4-10.2); CREATININE SERUM 1.3 mg/dL (0.6-1.4); GLOM FILT RATE Estimated 62.8 mL/min (>60); POTASSIUM 3.4 mmol/L (3.5-5.1); PROTEIN TOTAL SERUM 7.1 g/dL (6.0-8.3)
[2016-11-14] MEDS ORDERED: HYDRALAZINE HCL25 MG PO (21:34)
[2016-11-14] MEDS ORDERED: METOPROLOL TAR25 MG PO (21:35)
[2016-11-14] MEDS ORDERED: ISORDIL PO (21:35)
[2016-11-14] MEDS ORDERED: ASPIRIN81 M2 PO (21:36)
[2016-11-14] MEDS ORDERED: ZESTORETIC 20-1 EAC2 PO (21:36)
[2016-11-14] MEDS ORDERED: LIPITOR40 MG PO (21:36)
[2016-11-14] MEDS ORDERED: CLOPIDOGREL75 MG PO (21:36)
[2016-11-14 22:06] LABS: POC - CKMB 2.2 ng/mL (0.0-7.9); POC - TROPONIN <0.05 ng/mL (<=0.05)
[2016-11-15 07:07] LABS: BASOPHIL% 0.4 % (0-2.5); EOSINOPHIL% 0.2 % (0.0-7.0); HEMATOCRIT 48.5 % (38.0-50.0); HEMOGLOBIN 16.1 gm/dL (13.0-16.0); LYMPHOCYTE# 1.2 X10e3 (1.0-3.5); LYMPHOCYTE% 12.6 % (17.0-45.0); MEAN CELL VOLUME 86.9 FL (83-96); MEAN CORPUSCULAR HEMOGLOBIN 28.8 PG (28-34); MEAN CORPUSCULAR HGB CONC 33.1 g/dL (30-36); MEAN PLATELET VOLUME 9.6 FL (6.5-11.5); MONOCYTE# 0.5 X10e3 (0-1.0); MONOCYTE% 5.2 % (3.0-12.0); NEUTROPHIL# 7.5 X10e3 (1.5-7.1); NEUTROPHIL% 81.6 % (40-75); PLATELET COUNT 138 X10e3 (140-420); RED BLOOD COUNT 5.58 X10e (3.90-5.60); WHITE BLOOD COUNT 9.1 X10e3 (4.0-10.5)
[2016-11-15 07:08] LABS: DIFF IND NO
[2016-11-15 07:31] LABS: BUN/CREATININE RATIO 12.3; CALCIUM SERUM 8.8 mg/dL (8.4-10.2); CREATININE SERUM 1.3 mg/dL (0.6-1.4); GLOM FILT RATE Estimated 62.8 mL/min (>60); POTASSIUM 4.3 mmol/L (3.5-5.1)
[2016-11-16 06:40] LABS: HEMATOCRIT 48.5 % (38.0-50.0); HEMOGLOBIN 15.9 gm/dL (13.0-16.0); MEAN CELL VOLUME 87.4 FL (83-96); MEAN CORPUSCULAR HEMOGLOBIN 28.5 PG (28-34); MEAN CORPUSCULAR HGB CONC 32.7 g/dL (30-36); MEAN PLATELET VOLUME 9.9 FL (6.5-11.5); RED BLOOD COUNT 5.56 X10e (3.90-5.60); RED CELL DISTRIBUTION WIDTH 14.4 % (11.0-15.5); WHITE BLOOD COUNT 8.2 X10e3 (4.0-10.5)
[2016-11-16 07:03] LABS: BUN/CREATININE RATIO 11.42; CALCIUM SERUM 9.1 mg/dL (8.4-10.2); CREATININE SERUM 1.4 mg/dL (0.6-1.4); GLOM FILT RATE Estimated 57.4 mL/min (>60); POTASSIUM 4.7 mmol/L (3.5-5.1)
[2016-11-17 08:46] LABS: HEMATOCRIT 49.7 % (38.0-50.0); HEMOGLOBIN 16.4 gm/dL (13.0-16.0); MEAN CELL VOLUME 86.8 FL (83-96); MEAN CORPUSCULAR HEMOGLOBIN 28.7 PG (28-34); MEAN CORPUSCULAR HGB CONC 33.1 g/dL (30-36); MEAN PLATELET VOLUME 9.7 FL (6.5-11.5); RED BLOOD COUNT 5.72 X10e (3.90-5.60); RED CELL DISTRIBUTION WIDTH 14.1 % (11.0-15.5); WHITE BLOOD COUNT 7.2 X10e3 (4.0-10.5)
[2016-11-17 09:46] LABS: BUN/CREATININE RATIO 13.33; CALCIUM SERUM 8.8 mg/dL (8.4-10.2); CREATININE SERUM 1.2 mg/dL (0.6-1.4); GLOM FILT RATE Estimated 69.1 mL/min (>60); POTASSIUM 3.6 mmol/L (3.5-5.1)
[2016-11-17] MEDS ORDERED: LIPITOR80 MG PO (14:52)
[2016-11-17] MEDS ORDERED: LOPRESSOR PO (15:45)
[2016-11-17] MEDS ORDERED: HYDRALAZINE HCL50 MG PO (15:46)
[2016-11-17] MEDS ORDERED: COUMADIN5 MG PO (15:47)
[2016-11-17] MEDS ORDERED: LOVENOX100 MG/1 M SUBQ (15:48)
== END 2016-11-17 16:49 | disposition home health service (06) | DRG 65 ==
LOC: CED 19:38 → CEDOF 20:20 → CED 22:00 → CEDOF 22:09 → CED 22:09 → C3A PCU 11-15 19:37 → CEDOF 11-15 19:37 → CED 11-15 19:37 → CEDOF 11-15 20:29 → C3A PCU 11-15 20:29
PROVIDERS: Emergency Medicine; Internal Medicine; Nurse Practitioner
PROC: B338ZZZ Magnetic Resonance Imaging (MRI) of Bilateral Internal Carotid Arteries (ICD-10-PCS; 2016-11-15)
PROC: B33RZZZ Magnetic Resonance Imaging (MRI) of Intracranial Arteries (ICD-10-PCS; 2016-11-15)
PROC: B24BYZZ Ultrasonography of Heart with Aorta using Other Contrast (ICD-10-PCS; 2016-11-15)
PROC: B24BZZ4 Ultrasonography of Heart with Aorta, Transesophageal (ICD-10-PCS; principal; 2016-11-17)
DX: I63.549 Cerebral infarction due to unspecified occlusion or stenosis of unspecified cerebellar artery (principal); I13.0 Hypertensive heart and chronic kidney disease with heart failure and stage 1 through stage 4 chronic kidney disease, or unspecified chronic kidney disease; N18.3 Chronic kidney disease, stage 3 (moderate); I50.9 Heart failure, unspecified; Z86.73 Personal history of transient ischemic attack (TIA), and cerebral infarction without residual deficits; E78.5 Hyperlipidemia, unspecified; E66.9 Obesity, unspecified; F17.210 Nicotine dependence, cigarettes, uncomplicated; Z79.82 Long term (current) use of aspirin; E87.6 Hypokalemia; G47.33 Obstructive sleep apnea (adult) (pediatric); Z68.37 Body mass index [BMI] 37.0-37.9, adult; R26.81 Unsteadiness on feet; I65.02 Occlusion and stenosis of left vertebral artery; I65.23 Occlusion and stenosis of bilateral carotid arteries; R00.1 Bradycardia, unspecified; I70.0 Atherosclerosis of aorta; T50.905A Adverse effect of unspecified drugs, medicaments and biological substances, initial encounter; D75.1 Secondary polycythemia; J44.9 Chronic obstructive pulmonary disease, unspecified; K21.9 Gastro-esophageal reflux disease without esophagitis; I25.10 Atherosclerotic heart disease of native coronary artery without angina pectoris
CPT/HCPCS: 36415; 70450; 70544; 70549; 70551; 71010; 78451; 80048; 80061; 80076; 82550; 82553; 82947; 83036; 83880; 84443; 84484; 85025; 85027; 85610; 85730; 92523-GN; 92610; 93005; 93306; 93312; 93880; 94760; 96374; 96375; 97116; 97162; 97165; 97530; 99285; A9500; A9577; J1650; J2250; J2405; J2765; J2785; J3010